=== PATIENT | female | born 1990 | race Caucasian/White ===

== ENCOUNTER 2016-09-22 10:29 | Emergency (ER) | payer MEDICAID, OTHER ==
[2016-09-22 10:29] VITALS: BMI 31.6
[2016-09-22 11:08] VITALS: O2SAT 97
--- NOTE | 2016-09-22 12:15 | C.PDOC ---
History Of Present Illness 26 yr old female presents to the ER with complaints of right sided headache for the past few weeks. Patient states the headache is usually intermittent, but currently the headache has lasted for the last 3 days and was gradual onset with nausea and vomiting. Patient reports today she felt light headed and passed out at work. Patient reports she takes control pill and has no history of syncope. Patient has been treating the headache with Tylenol and Motrin. Patient denies fever, chest pain, SOB, vision changes, weakness or numbness. Time Seen by Provider: 09/22/16 11:35 Chief Complaint (Nursing): Syncope History Per: Patient History/Exam Limitations: no limitations Onset/Duration Of Symptoms: Persistent (few weeks), Worse Since (3 days) Current Symptoms Are (Timing): Still Present Past Medical History Reviewed: Historical Data, Nursing Documentation, Vital Signs Vital Signs: Last Vital Signs Temp Pulse 108 H 09/22/16 11:04 Resp 20 09/22/16 11:04 BP 124/76 09/22/16 11:04 Pulse Ox 97 09/22/16 14:18 - Medical History PMH: Asthma, Diabetes, Kidney Stones - Perfect Procedures DELIVERY OF PRODUCTS OF CONCEPTION, EXTERNAL APPROACH (10/28/15) DRAINAGE OF AMNIOTIC FL, THERAP FROM POC, VIA OPENING (10/28/15) Family History: States: No Known Family Hx - Social History Hx Tobacco Use: No Hx Alcohol Use: No Hx Substance Use: No - Immunization History Hx Tetanus Toxoid Vaccination: Yes Hx Influenza Vaccination: Yes Hx Pneumococcal Vaccination: No Review Of Systems Except As Marked, All Systems Reviewed And Found Negative. Constitutional: Negative for: Fever Eyes: Negative for: Vision Change Cardiovascular: Positive for: Light Headedness. Negative for: Chest Pain Respiratory: Negative for: Shortness of Breath Gastrointestinal: Positive for: Nausea, Vomiting Musculoskeletal: Negative for: Arm Pain Neurological: Positive for: Headache. Negative for: Weakness, Numbness Physical Exam - Physical Exam Appears: Non-toxic, No Acute Distress Skin: Warm, Dry, No Rash Head: Atraumatic, Normacephalic Eye(s): bilateral: Normal Inspection, PERRL, EOMI Ear(s): Bilateral: Normal Oral Mucosa: Moist Throat: Normal, No Erythema, No Exudate Neck: Normal, Normal ROM, No Midline Cervical Tenderness, Supple Chest: Symmetrical, No Tenderness Cardiovascular: Rhythm Regular, No Murmur Respiratory: Normal Breath Sounds, No Rales, No Rhonchi, No Wheezing, No Plerual Rub Gastrointestinal/Abdominal: Normal Exam, Soft, No Tenderness, No Guarding, No Rebound Back: Normal Inspection, No CVA Tenderness Extremity: Normal ROM, No Swelling Neurological/Psych: Oriented x3, Normal Speech, Normal Motor ED Course And Treatment - Laboratory Results Result Diagrams: 09/22/16 12:56 09/22/16 12:56 Urine POC: Negative ECG: Interpreted By Me, Viewed By Me ECG Rhythm: Sinus Tachycardia Interpretation Of ECG: sinus tach Rate From EC O2 Sat by Pulse Oximetry: 97 Pulse Ox Interpretation: Normal Medical Decision Making Medical Decision Making: PLAN: * POC Urine * 202 pm pt reports headache greatly decreased. discussed with steve Thomas d/c Disposition Discussed With : Weston Yanez Doctor Will See Patient In The: Office Counseled Patient/Family Regarding: Studies Performed, Diagnosis, Need For Followup - Disposition Referrals: Weston Yanez MD [Staff Provider] - Disposition: HOME/ ROUTINE Disposition Time: 16:35 Condition: IMPROVED Instructions: Syncope (ED) Forms: General Discharge Instructions - Clinical Impression Clinical Impression: Syncope - PA / EMERGENCY COMMUNICATIONS OFFICER / Resident Statement MD/DO has reviewed & agrees with the documentation as recorded. - Scribe Statement The provider has reviewed the documentation as recorded by the Scribe Vilma Michelle All medical record entries made by the Scribe were at my direction and personally dictated by me. I have reviewed the chart and agree that the record accurately reflects my personal performance of the history, physical exam, medical decision making, and the department course for this patient. I have also personally directed, reviewed, and agree with the discharge instructions and disposition.
[2016-09-22 13:01] LABS: BASO # 0.1 K/uL (0.0-0.2); EOS % 0.5 % (0.0-4.0); HEMATOCRIT 39.8 % (34.0-47.0); LYMPH # 2.6 K/uL (1.0-4.3); LYMPH % 25.9 % (20.0-40.0); MEAN CELL VOLUME 89.3 fL (81.0-99.0); MEAN CORPUSCULAR HEMOGLOBIN 29.6 pg (27.0-31.0); MEAN CORPUSCULAR HGB CONC 33.2 g/dL (33.0-37.0); MEAN PLATELET VOLUME 8.1 fL (7.2-11.7); MONO # 0.8 K/uL (0.0-0.8); MONO % 7.9 % (0.0-10.0); RED CELL DISTRIBUTION WIDTH 13.7 % (11.5-14.5)
[2016-09-22 13:06] LABS: RBC URINE < 1 /hpf (0-3); URINE BILIRUBIN NEGATIVE (NEGATIVE); URINE BLOOD NEGATIVE (NEGATIVE); URINE COLOR Yellow (YELLOW); URINE GLUCOSE (UA) NORMAL (Normal); URINE KETONE NEGATIVE (NEGATIVE); URINE LEUKOCYTE ESTERASE NEG Leu/uL (Negative); URINE PROTEIN 1+ mg/dL (NEGATIVE); URINE UROBILINOGEN NORMAL mg/dL (0.2-1.0); WBC URINE < 1 /hpf (0-5)
[2016-09-22 13:08] LABS: CHLORIDE 106 mmol/L (98-107); POTASSIUM 4.4 mmol/L (3.6-5.2); SODIUM 143 mmol/L (132-148)
[2016-09-22 13:11] LABS: BLOOD UREA NITROGEN 10 mg/dL (7-17); CARBON DIOXIDE 24 mmol/L (22-30); GFR AFRICAN-AMERICAN > 60
[2016-09-22 13:12] LABS: CALCIUM 8.6 mg/dl (8.6-10.4); GLUCOSE,RANDOM 80 mg/dL (65-105)
--- NOTE | 2016-09-22 14:48 | CT ---
PROCEDURE: CT HEAD WITHOUT CONTRAST. HISTORY: syncope COMPARISON: No prior study available for comparison. . TECHNIQUE: Axial computed tomography images were obtained through the head/brain without intravenous contrast. Radiation dose: Total exam DLP = 828.41 mGy-cm. FINDINGS: HEMORRHAGE: No intracranial hemorrhage. BRAIN: No mass effect or edema. No atrophy or chronic microvascular ischemic changes. VENTRICLES: Prominent cisterna magna. No hydrocephalus. CALVARIUM: Unremarkable. PARANASAL SINUSES: Unremarkable as visualized. No significant inflammatory changes. MASTOID AIR CELLS: Unremarkable as visualized. No inflammatory changes. OTHER FINDINGS: None. IMPRESSION: No acute intracranial hemorrhage.
[2016-09-22 16:33] VITALS: BP 120/87; PULSE 99; RESP 18; TEMP 98.2
--- NOTE | 2016-09-23 20:01 | CARD ---
APPROVED REPORT EKG Measurement Heart [id number] DE 150P42 [id number] <Conclusion> Sinus tachycardia Otherwise normal
== END 2016-09-22 16:42 | disposition home or self-care (01) ==
LOC: C.ER 10:29
DX: R55 Syncope and collapse (principal)

== ENCOUNTER 2017-04-23 15:21 | Inpatient (IN) | payer SELFPAY ==
[2017-04-23 15:21] VITALS: BMI 31.6
--- NOTE | 2017-04-23 16:02 | C.PDOC ---
History Of Present Illness <Celina Joseph - Last Filed: 04/23/17 20:21> <Sebastien Chavez - Last Filed: 04/23/17 22:45> 26 y/o F c p/w vaginal bleeding in . Patient had positive urine test 2 weeks ago and began spotting today. States that the bleeding has now stopped. Denies current pain. Denies dysuria, fever, vomiting. Patient had L sided flank pain 2 weeks ago radiating to L groin, similar to previous kidney stones, which typically occur when she becomes . She was taking Bactrim for the flank pain but discontinued it when she discovered she was . (Sebastien Chavez) <Celina Joseph - Last Filed: 04/23/17 20:21> <Sebastien Chavez - Last Filed: 04/23/17 22:45> Time Seen by Provider: 04/23/17 15:42 Chief Complaint (Nursing): Female Genitourinary Past Medical History - Medical History PMH: Asthma, Diabetes, Kidney Stones Family History: States: Unknown Family Hx - Social History Hx Tobacco Use: No Hx Alcohol Use: No Hx Substance Use: No - Immunization History Hx Tetanus Toxoid Vaccination: Yes Hx Influenza Vaccination: Yes Hx Pneumococcal Vaccination: No <Sebastien Chavez - Last Filed: 04/23/17 22:45> Vital Signs: Last Vital Signs Temp 98.8 F 04/23/17 20:44 Pulse 98 H 04/23/17 20:44 Resp 18 04/23/17 20:44 BP 114/78 04/23/17 20:44 Pulse Ox 100 04/23/17 20:44 - [facility] Procedures DELIVERY OF PRODUCTS OF CONCEPTION, EXTERNAL APPROACH (10/28/15) DRAINAGE OF AMNIOTIC FL, THERAP FROM POC, VIA OPENING (10/28/15) Review Of Systems Except As Marked, All Systems Reviewed And Found Negative. Constitutional: Negative for: Fever Respiratory: Negative for: Shortness of Breath <Sebastien Chavez - Last Filed: 04/23/17 22:45> Physical Exam <Celina Joseph - Last Filed: 04/23/17 20:21> <Sebastien Chavez - Last Filed: 04/23/17 22:45> - Physical Exam Additional Physical Exam Comments: Constitutional: No acute distress. Head: Normocephalic. Atraumatic. Eyes: PERRL. EOMI. ENT: Moist mucous membranes. Neck: Supple. Cardiovascular: Regular rate. Radial pulses 2+ bilaterally. Chest: No tenderness. Respiratory: Clear to auscultation bilaterally. GI: Soft. Nontender. Nondistended. Back: No CVA tenderness. Musculoskeletal: No tenderness or swelling of extremities. Skin: No rash. Neurologic: Alert, no focal deficit. (Sebastien Chavez) ED Course And Treatment - Laboratory Results Result Diagrams: 04/23/17 16:12 04/23/17 16:12 <JakeCelina - Last Filed: 04/23/17 20:21> - Laboratory Results Result Diagrams: 04/23/17 16:12 04/23/17 16:12 O2 Sat by Pulse Oximetry: 99 <Sebastien Chavez - Last Filed: 04/23/17 22:45> Progress - Data Reviewed Data Reviewed: Lab, Diagnostic imaging, Old records <Celina Joseph - Last Filed: 04/23/17 20:21> <Sebastien Chavez - Last Filed: 04/23/17 22:45> - Re-Evaluation Re-evaluation Note: 04/23/17 20:[address] WHITAKER. PT REQUESTING O.R. (Celina Joseph) Medical Decision Making <Celina Joseph - Last Filed: 04/23/17 20:21> <Sebastien Chavez - Last Filed: 04/23/17 22:45> Medical Decision Making: Check US for IUP and correlate with Bhcg. Check UA for UTI. Check US for hydronephrosis. Patient declined pain medication. US shows no IUP despite beta hcg above discriminatory zone. In L adnexa, "ring of fire" visible as per radiologist. Dr. Whitaker consulted for OBGYN. Signed out to ED night team pending her recommendation. (Sebastien Chavez) Disposition Counseled Patient/Family Regarding: Studies Performed, Diagnosis - Disposition Disposition Time: 20:21 - POA Present On Arrival: None <Celina Joseph - Last Filed: 04/23/17 20:21> <Sebastien Chavez - Last Filed: 04/23/17 22:45> - Disposition Disposition: HOSPITALIZED Condition: STABLE - Clinical Impression Clinical Impression: Ectopic Decision To Admit - Pt Status Changed To: Hospital Disposition Of: Observation - . Bed Request Type: AIR MARSHAL Admitting Physician: Ivet Whitaker <Celina Joseph - Last Filed: 04/23/17 20:21> <Sebastien Chavez - Last Filed: 04/23/17 22:45> - . Patient Diagnosis: Ectopic
[2017-04-23 16:17] LABS: BASO # 0.1 K/uL (0.0-0.2); BASO % 1.2 % (0.0-2.0); EOS # 0.1 K/uL (0.0-0.7); EOS % 0.9 % (0.0-4.0); HEMATOCRIT 40.1 % (34.0-47.0); LYMPH # 2.7 K/uL (1.0-4.3); MEAN CELL VOLUME 89.3 fL (81.0-99.0); MEAN CORPUSCULAR HEMOGLOBIN 30.4 pg (27.0-31.0); MEAN CORPUSCULAR HGB CONC 34.1 g/dL (33.0-37.0); MEAN PLATELET VOLUME 8.2 fL (7.2-11.7); MONO # 0.7 K/uL (0.0-0.8); MONO % 6.8 % (0.0-10.0); RED CELL DISTRIBUTION WIDTH 13.5 % (11.5-14.5); WHITE BLOOD COUNT 10.7 K/uL (4.8-10.8)
[2017-04-23 16:25] LABS: CHLORIDE 98 mmol/L (98-107)
[2017-04-23 16:26] LABS: POTASSIUM 4.1 mmol/L (3.6-5.2); SODIUM 132 mmol/L (132-148)
[2017-04-23 16:28] LABS: ALB/GLOB RATIO 1.4 (1.0-2.1); AST/SGOT 20 U/L (14-36); BILIRUBIN,TOTAL 0.5 mg/dL (0.2-1.3); BLOOD UREA NITROGEN 10 mg/dL (7-17); CARBON DIOXIDE 24 mmol/L (22-30); GFR AFRICAN-AMERICAN > 60; TOTAL PROTEIN 8.1 g/dL (6.3-8.3)
[2017-04-23 16:29] LABS: ALKALINE PHOSPHATASE 70 U/L (38-126); ALT/SGPT 31 U/L (9-52); CALCIUM 9.4 mg/dl (8.6-10.4); GLUCOSE,RANDOM 79 mg/dL (65-105)
[2017-04-23 16:36] LABS: RBC URINE 1 /hpf (0-3); URINE BACTERIA OCC (<OCC); URINE BILIRUBIN NEGATIVE (NEGATIVE); URINE BLOOD NEGATIVE (NEGATIVE); URINE COLOR Yellow (YELLOW); URINE GLUCOSE (UA) NORMAL (Normal); URINE KETONE NEGATIVE (NEGATIVE); URINE LEUKOCYTE ESTERASE TRACE Leu/uL (Negative); URINE PROTEIN NEGATIVE (NEGATIVE); WBC URINE 6 /hpf (0-5)
--- NOTE | 2017-04-23 19:00 | US ---
PROCEDURE: Ultrasound of the Kidneys HISTORY: h/o kidney stones, assess for hydronephrosis/stone COMPARISON: Comparison made with CT scan abdomen and pelvis dated 12/11/2014. TECHNIQUE: Sonogram of the kidneys. FINDINGS: RIGHT KIDNEY: Right kidney measures approximately 10.4 x 3.8 x 3.6 Normal in size, contour and echogenicity. There is a small approximately 2.4 mm echogenic focus lower pole left kidney that is most consistent with nonobstructing calculus and was visible on prior study. . No evidence of hydronephrosis. No solid masses or collections seen. LEFT KIDNEY: Left kidney measures approximately 10.6 x 5.2 x 4.4 cm Normal in size, contour and echogenicity. No stone, solid mass lesion or hydronephrosis visualized. OTHER FINDINGS: None. IMPRESSION: Small nonobstructing calculus lower pole right kidney.
--- NOTE | 2017-04-23 19:13 | US ---
PROCEDURE: Pelvic ultrasound dated 04/23/2017. HISTORY: vag bleeding in , assess cervix COMPARISON: Transabdominal/transvaginal sonographic evaluation of the pelvis performed. Comparison made with prior OB ultrasound dated 12/24/2014 TECHNIQUE: Transabdominal/transvaginal sonographic evaluation of the pelvis performed. FINDINGS: Uterus is retroverted measuring approximately 9.2 x 6.2 x 6.2 cm. No evidence of intrauterine gestation. Left adnexa measures 4.2 x 3.2 x 2.6 cm and contains a complex cyst that measures 2.0 x 1.7 x 1.6 cm which appears to exhibit a rim of increased vascularity (questionable ring of fire of ectopic ). Correlation with serum beta HCG. . The findings should be considered ectopic until proven otherwise. There is also a 2nd complex appearing structure with anechoic centered at measures approximately 1.2 x 8 1.4 x 1.2 cm Cervix measures approximately 3.4 cm. There is a fundal fibroid that measures 1.0 x 0.9 x 1.4 cm. Right ovary measures 2.9 x 2.6 x 2.2 cm and exhibits normal flow. IMPRESSION: No evidence of intrauterine gestation. Complex appearing left adnexal structures, 1 of which exhibits a peripheral ring of increased vascularity which is felt to represent" ring of fire sign of ectopic " ; findings consistent with ectopic until proven otherwise. Correlation with serum beta HCG. Findings also discussed with Dr. Chavez at approximately 7:08 p.m. with written down and read back verification.
[2017-04-23] MEDS ORDERED: Propofol 10 mg/ml Inj (20 ML) ONE ×2 (21:29→23:00)
[2017-04-23] MEDS ORDERED: Midazolam 2 MG/2 ML VIAL ONE (21:29)
[2017-04-23] MEDS ORDERED: Rocuronium 10 mg/ml (5 ml) ONE (21:34)
[2017-04-23] MEDS ORDERED: Lactated Ringer's 1,000 ML IV ONE ×2 (21:35→22:18)
[2017-04-23] MEDS ORDERED: Bupivacaine HCl 0.25% PF (10 ml) Inj ONE (21:50)
[2017-04-23] MEDS ORDERED: cefOXitin IV 2 gm in Dextrose 2 GM/50 ML BAG IVPB ONE (21:51)
[2017-04-23] MEDS: HYDROmorphone 0.5 mg/0.5 ml ISec IVP PRN ×3 (23:23→23:45)
[2017-04-23] MEDS ORDERED: Oxycodone/Acetaminophen 5/325 mg Tab PO PRN (23:28)
--- NOTE | 2017-04-23 23:36 | PCM.SURG1 ---
Surgeon's Initial Post Op Note - Surgeon's Notes Surgeon: Ivet Whitaker MD Smalltalk Developer: Salome Calle MD Type of Anesthesia: General Endo Anesthesia Administered By: Edward Abad DO Pre-Operative Diagnosis: Left ectopic Operative Findings: EUA: retroflexed uterus; no adnexal masses. Uterus sounded to 10 cm. At laparoscopy: grossly appearing fallopian tubes bilaterally, products of conception retrieved from posterior cul-de-sac; oozing from fimbriated end of left fallopian tube. Normal ovaries bilaterally. Probable hemorrhagic corpus luteum of left ovary. Normal upper abdominal organs. Filmy adhesions in RLQ from intestines to anterior abdominal wall. Post-Operative Diagnosis: Left tubal . Operation Performed: Retrieval of products of conception. Cauterization of left fallopian tube. Specimen/Specimens Removed: Products of conception, blood clots Estimated Blood Loss: EBL {In ML}: 50 (IVFs 1300 mL; U.O. 200 mL) Blood Products Given: N/A Drains Used: No Drains Post-Op Condition: Good Date of Surgery/Procedure: 04/23/17 Time of Surgery/Procedure: 23:18
--- NOTE | 2017-04-24 00:08 | CP.PCM.HP ---
History of Present Illness - History of Present Illness History of Present Illness: Patient received in E.D. bed 15 at approximately 2010 hours; patient in NAD; significant other at her bedside. Patient is a 26 y.alexei G 5 P2022, LMP 03/09/17 x 5-6 days, "normal", referred by PCP and employer Dr. Yanez for evaluation of continual left lower back pain. Patient reports ooset of left low back pain 2 weeks ago. Blood work performed, found to be . Patient made appointment for first visit at [facility] 05/19/17. While at work today, due to persistent c/o low back pain, advised to come to E.D. In E.D., renal ultrasound performed confirms non obstructing 2.4 mm echogenic focus consistent with calculus in lower pole of left kidney, present on prior study. Pelvic ultrasound revealed no gestational sac in uterus, left adnexal complex cyst 2.0 x 1.7 x 1.6 cm with increased vascularity - c/w ectopic ; a second complex cyst in the left adnexa, and normal right adnexa. No comment made as to free fluid. In light of serum quantitative HCG of 4760 mIU and these ultrasound findings, ectopic is very likely. Patient reports pain is 4/10. Denies nausea , vomiting, or abdominal pain. P Ob: x 2: 2008, female, 6 1/2 lb, [place], [place], no complications. 2016 , male, 6 1/2 lb, [facility], noted for renal calculus. 2015, Spont ab x 2 : both "very early"; no D&C needed. P METABOLIC SPECIALIST: 15 x monthly x 5-6 No h/o abnormal pap; no STI except HPV (+). PMH: 2016, renal calculus PSH: Age 11, laparoscopic appendectomy NKDA Meds: none Soc Hx: denies tobacco, illicit drug or EtOH use. Lives with FOB: together x 4 years. 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 Fam Hx: Mother alive 45 y.o. - cancer of the brain. Father age 42 - complicaitons pf HTN, DM, cardiac issues. NO other fam h/o cancer Present on Admission - Present on Admission Any Indicators Present on Admission: No Review of Systems - Review of Systems All systems: reviewed and no additional remarkable complaints except - Genitourinary Genitourinary: Hx Renal/Bladder Calculi Additional comments: Left low back pain Past Patient History - Infectious Disease Hx of Infectious Diseases: None - Tetanus Immunizations Tetanus Immunization: Unknown - Past Medical History & Family History Pertinent Family History: Mother - cancer of the brain Father - H/O HTN, DM, cardiac disease - Past Social History Smoking Status: Never Smoked 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 Alcohol: None Drugs: Denies Home Situation {Lives}: With Family - CARDIAC Hx Cardiac Disorders: No - PULMONARY Hx Asthma: Yes - NEUROLOGICAL Hx Neurological Disorder: No - RENAL Hx Kidney Stones: Yes - HEMATOLOGICAL/ONCOLOGICAL Hx Blood Disorders: No - INTEGUMENTARY Hx Dermatological Problems: No - MUSCULOSKELETAL/RHEUMATOLOGICAL Hx Back Pain: Yes - GASTROINTESTINAL Other/Comment: Appendectomy, age 11 - GENITOURINARY/GYNECOLOGICAL : 5 Para: 2 Termination of : 2 - PSYCHIATRIC Hx Psychophysiologic Disorder: No Hx Substance Use: No - SURGICAL HISTORY Hx Surgeries: Yes Hx Appendectomy: Yes - ANESTHESIA Hx Anesthesia: Yes Meds Allergies/Adverse Reactions: Allergies Allergy/AdvReac Type Severity Reaction Status Date / Time No Known Allergies Allergy Verified 09/22/16 11:08 Physical Exam - Constitutional Appears: Well, No Acute Distress - Head Exam Head Exam: NORMAL INSPECTION - Eye Exam Eye Exam: Normal appearance - ENT Exam ENT Exam: Mucous Membranes Moist - Neck Exam Neck exam: Positive for: Full Rom - Respiratory Exam Respiratory Exam: NORMAL BREATHING PATTERN - Cardiovascular Exam Cardiovascular Exam: REGULAR RHYTHM - GI/Abdominal Exam GI & Abdominal Exam: Soft - Exam Additional comments: No cervical motion tenderness or uterine tenderness. (+) left adnexal tenderness. No right adnexal mass or tenderness - Extremities Exam Extremities exam: Positive for: full ROM, normal inspection - Back Exam Back exam: CVA tenderness (L) - Neurological Exam Neurological exam: Alert, Oriented x3 - Psychiatric Exam Psychiatric exam: Normal Affect, Normal Mood - Skin Skin Exam: Dry, Intact, Normal Color, Warm Results - Vital Signs Recent Vital Signs: Last Vital Signs Temp 97.3 F L 04/23/17 23:18 Pulse 69 04/23/17 23:45 Resp 15 04/23/17 23:45 BP 119/64 04/23/17 23:45 Pulse Ox 99 04/23/17 23:45 - Labs Result Diagrams: 04/23/17 16:12 04/23/17 16:12 Labs: Laboratory Results - last 24 hr 04/23/17 04/23/17 04/23/17 15:50 16:12 16:12 WBC 10.7 RBC 4.49 Hgb 13.6 Hct 40.1 MCV 89.3 MCH 30.4 MCHC 34.1 RDW 13.5 Plt Count 391 MPV 8.2 Neut % (Auto) 66.1 Lymph % (Auto) 25.0 [place] % (Auto) 6.8 Eos % (Auto) 0.9 Baso % (Auto) 1.2 Neut # 7.0 Lymph # 2.7 [place] # 0.7 Eos # 0.1 Baso # 0.1 Sodium 132 Potassium 4.1 Chloride 98 Carbon Dioxide 24 Anion Gap 14 BUN 10 Creatinine 0.7 Est GFR ( Amer) > 60 Est GFR (Non-Af Amer) > 60 Random Glucose 79 Calcium 9.4 Total Bilirubin 0.5 AST 20 ALT 31 Alkaline Phosphatase 70 Total Protein 8.1 Albumin 4.7 Globulin 3.4 Albumin/Globulin Ratio 1.4 Beta HCG, Quant Urine Color Yellow Urine Clarity Clear Urine pH 5.0 Ur Specific [place] 1.020 Urine Protein Negative Urine Glucose (UA) Normal Urine Ketones Negative Urine Blood Negative Urine Nitrate Negative Urine Bilirubin Negative Urine Urobilinogen 2.0 H Ur Leukocyte Esterase Trace Urine WBC (Auto) 6 H Urine RBC (Auto) 1 Ur Squamous Epith Cells 9 H Urine Bacteria Occ H Urine HCG, Qual Positive Blood Type Antibody Screen 04/23/17 04/23/17 16:12 16:12 WBC RBC Hgb Hct MCV MCH MCHC RDW Plt Count MPV Neut % (Auto) Lymph % (Auto) [place] % (Auto) Eos % (Auto) Baso % (Auto) Neut # Lymph # [place] # Eos # Baso # Sodium Potassium Chloride Carbon Dioxide Anion Gap BUN Creatinine Est GFR ( Amer) Est GFR (Non-Af Amer) Random Glucose Calcium Total Bilirubin AST ALT Alkaline Phosphatase Total Protein Albumin Globulin Albumin/Globulin Ratio Beta HCG, Quant 4760.60 Urine Color Urine Clarity Urine pH Ur Specific [place] Urine Protein Urine Glucose (UA) Urine Ketones Urine Blood Urine Nitrate Urine Bilirubin Urine Urobilinogen Ur Leukocyte Esterase Urine WBC (Auto) Urine RBC (Auto) Ur Squamous Epith Cells Urine Bacteria Urine HCG, Qual Blood Type A POSITIVE Antibody Screen Negative Assessment & Plan - Assessment and Plan (Free Text) Assessment: Laboratory and ultrasound reports and images of pelvic ultrasound reviewed by me personally 26 y.ol P2022, left ectopic . Options discussed with patient: 1) methotrexate and the anticipated weekly folllow up until quantitative HCG level is negative. The possibility of surgery and repeat dosing was discussed. 2) surgical intervention. R/B/C discussed. Patient opted for surgery at this time. Patient last ate at 1000 hours. Consents signed, dated, witnessed and placed in chart. Patient is NPO; clinically stable. and livestock nutritionist to O.R. Plan: Admit to METABOLIC SPECIALIST NPO IVFs Mefoxin 2 grams IVP x 1, livestock nutritionist to O.R. - Date & Time Date: 04/23/17 Time: 20:45
[2017-04-24] MEDS: Lactated Ringer's 1,000 ML IV SCH ×3 (00:58→08:26)
[2017-04-24] MEDS: Oxycodone/Acetaminophen 5/325 mg Tab PO PRN ×2 (02:38→08:18)
[2017-04-24 07:29] LABS: BASO % 0.1 % (0.0-2.0); HEMATOCRIT 37.3 % (34.0-47.0); LYMPH # 0.8 K/uL (1.0-4.3); LYMPH % 5.9 % (20.0-40.0); MEAN CELL VOLUME 90.1 fL (81.0-99.0); MEAN CORPUSCULAR HEMOGLOBIN 30.4 pg (27.0-31.0); MEAN CORPUSCULAR HGB CONC 33.8 g/dL (33.0-37.0); MEAN PLATELET VOLUME 8.5 fL (7.2-11.7); MONO # 0.3 K/uL (0.0-0.8); MONO % 2.1 % (0.0-10.0); PLATELET COUNT 376 K/uL (130-400); RED CELL DISTRIBUTION WIDTH 13.4 % (11.5-14.5); WHITE BLOOD COUNT 13.6 K/uL (4.8-10.8)
--- NOTE | 2017-04-24 07:31 | CP.PCM.PN ---
Subjective - Date & Time of Evaluation Date of Evaluation: 04/24/17 Time of Evaluation: 07:27 - Subjective Subjective: Clarisa Diaz, PGY1, Progress Note for Dr Rudd: Pt seen and examined at bedside. Pt had a L salpingostomy overnight. Denies fever, chills, nausea, vomiting, left lower back pain, vaginal bleeding/ discharge this AM. Pt reports pain at laparoscopic incision sites/abdominal pain , rates it 9/10. Pt received Percocet earlier in the night, and Motrin an hour before. Objective - Vital Signs/Intake and Output Vital Signs (last 24 hours): Temp Pulse Resp BP Pulse Ox 97.7 F 110 H 20 108/72 99 04/24/17 00:51 04/24/17 00:51 04/24/17 00:51 04/24/17 00:51 04/24/17 00:51 Intake and Output: 04/24/17 04/24/17 06:59 18:59 Output Total 350 Balance -350 - Medications Medications: Current Medications Lactated Ringer's (Lactated Ringer's) 1,000 mls @ 125 mls/hr IV .Q8H LUZ Last Admin: 04/24/17 00:58 Dose: 125 mls/hr Ibuprofen (Motrin Tab) 600 mg PO Q6 PRN PRN Reason: Pain, Mild (1-3) Last Admin: 04/24/17 05:44 Dose: 600 mg Metoclopramide HCl (Reglan) 10 mg IVP ONCE PRN PRN Reason: Nausea/Vomiting Stop: 04/24/17 23:00 Oxycodone/Acetaminophen (Percocet 5/325 Mg Tab) 1 tab PO Q4H PRN PRN Reason: Pain, moderate (4-7) Stop: 04/26/17 23:29 Oxycodone/Acetaminophen (Percocet 5/325 Mg Tab) 2 tab PO Q6H PRN PRN Reason: Pain, severe (8-10) Stop: 04/26/17 23:30 Last Admin: 04/24/17 02:38 Dose: 2 tab - Labs Labs: 04/23/17 16:12 04/23/17 16:12 - Constitutional Appears: No Acute Distress, Younger Than Stated Age - Head Exam Head Exam: ATRAUMATIC, NORMOCEPHALIC - Eye Exam Eye Exam: EOMI, PERRL. absent: Conjunctival injection, Scleral icterus Pupil Exam: PERRL. absent: Irregular, Unequal - ENT Exam ENT Exam: Mucous Membranes Moist - Neck Exam Neck Exam: Normal Inspection - Respiratory Exam Respiratory Exam: Clear to Ausculation Bilateral, NORMAL BREATHING PATTERN. absent: Accessory Muscle Use, Rhonchi, Wheezes - Cardiovascular Exam Cardiovascular Exam: REGULAR RHYTHM, RRR, +S1, +S2. absent: Bradycardia, Tachycardia, Murmur - GI/Abdominal Exam GI & Abdominal Exam: Soft, Hypoactive Bowel Sounds. absent: Tenderness, Rebound - Extremities Exam Extremities Exam: Normal Inspection. absent: Calf Tenderness, Pedal Edema, Tenderness - Neurological Exam Neurological Exam: Alert, Awake, Oriented x3 - Psychiatric Exam Psychiatric exam: Normal Affect, Normal Mood - Skin Skin Exam: Dry, Warm Additional comments: 3 laparoscopic incision sites noted on abdominal area, covered in dressing, c/d/ i Assessment and Plan - Assessment and Plan (Free Text) Assessment: 26 years old female , s/p left tubal for left ectopic , POD 1. Plan: - Reglan prn, C/w pain management motrin and percocet prn - Monitor for fever, vaginal bleeding. - Pt tolerating clear liquids, will advance to regular diet today. - Increase activity as tolerated. - Hgb stable post surgery: 13.6->12.6 this AM. - Monitor weekly B HCG; on admission b HCG 4760; F/u with COMPUTER INFORMATION SYSTEMS INSTRUCTOR outpatient - Will discharge today. F/u in clinic with Dr. Rudd in 1 week. Discussed with attending, Dr. Rudd. Clarisa Diaz, PGY1
[2017-04-24 08:33] VITALS: BP 99/62; PULSE 79; RESP 18; TEMP 97.8; O2SAT 98
--- NOTE | 2017-04-24 09:12 | CP.PCM.DIS ---
<CLARICE CARVER - Last Filed: 04/24/17 09:16> Provider - Provider Date of Admission: 04/23/17 20:22 Attending physician: Ivet Whitaker MD Primary care physician: Dr aYnez Time Spent in preparation of Discharge (in minutes): 30 Diagnosis - Discharge Diagnosis (1) Tubal Status: Acute Priority: Medium Onset Date: ~04/23/17 Hospital Course - Lab Results Lab Results: Most Recent Lab Values WBC 13.6 K/uL (4.8-10.8) H 04/24/17 07:13 RBC 4.14 Mil/uL (3.80-5.20) 04/24/17 07:13 Hgb 12.6 g/dL (11.0-16.0) 04/24/17 07:13 Hct 37.3 % (34.0-47.0) 04/24/17 07:13 MCV 90.1 fL (81.0-99.0) 04/24/17 07:13 MCH 30.4 pg (27.0-31.0) 04/24/17 07:13 MCHC 33.8 g/dL (33.0-37.0) 04/24/17 07:13 RDW 13.4 % (11.5-14.5) 04/24/17 07:13 Plt Count 376 K/uL (130-400) 04/24/17 07:13 MPV 8.5 fL (7.2-11.7) 04/24/17 07:13 Neut % (Auto) 91.9 % (50.0-75.0) H 04/24/17 07:13 Lymph % (Auto) 5.9 % (20.0-40.0) L 04/24/17 07:13 [place] % (Auto) 2.1 % (0.0-10.0) 04/24/17 07:13 Eos % (Auto) 0.0 % (0.0-4.0) 04/24/17 07:13 Baso % (Auto) 0.1 % (0.0-2.0) 04/24/17 07:13 Neut # 12.5 K/uL (1.8-7.0) H 04/24/17 07:13 Lymph # 0.8 K/uL (1.0-4.3) L 04/24/17 07:13 [place] # 0.3 K/uL (0.0-0.8) 04/24/17 07:13 Eos # 0.0 K/uL (0.0-0.7) 04/24/17 07:13 Baso # 0.0 K/uL (0.0-0.2) 04/24/17 07:13 Sodium 132 mmol/L (132-148) 04/23/17 16:12 Potassium 4.1 mmol/L (3.6-5.2) 04/23/17 16:12 Chloride 98 mmol/L (98-107) 04/23/17 16:12 Carbon Dioxide 24 mmol/L (22-30) 04/23/17 16:12 Anion Gap 14 (10-20) 04/23/17 16:12 BUN 10 mg/dL (7-17) 04/23/17 16:12 Creatinine 0.7 mg/dL (0.7-1.2) 04/23/17 16:12 Est GFR ( Amer) > 60 04/23/17 16:12 Est GFR (Non-Af Amer) > 60 04/23/17 16:12 Random Glucose 79 mg/dL (65-105) 04/23/17 16:12 Calcium 9.4 mg/dl (8.6-10.4) 04/23/17 16:12 Total Bilirubin 0.5 mg/dL (0.2-1.3) 04/23/17 16:12 AST 20 U/L (14-36) 04/23/17 16:12 ALT 31 U/L (9-52) 04/23/17 16:12 Alkaline Phosphatase 70 U/L (38-126) 04/23/17 16:12 Total Protein 8.1 g/dL (6.3-8.3) 04/23/17 16:12 Albumin 4.7 g/dL (3.5-5.0) 04/23/17 16:12 Globulin 3.4 gm/dL (2.2-3.9) 04/23/17 16:12 Albumin/Globulin Ratio 1.4 (1.0-2.1) 04/23/17 16:12 Beta HCG, Quant 2097.00 mIU/ML 04/24/17 07:13 Urine Color Yellow (YELLOW) 04/23/17 15:50 Urine Clarity Clear (Clear) 04/23/17 15:50 Urine pH 5.0 (5.0-8.0) 04/23/17 15:50 Ur Specific [place] 1.020 (1.003-1.030) 04/23/17 15:50 Urine Protein Negative mg/dL (NEGATIVE) 04/23/17 15:50 Urine Glucose (UA) Normal mg/dL (Normal) 04/23/17 15:50 Urine Ketones Negative mg/dL (NEGATIVE) 04/23/17 15:50 Urine Blood Negative (NEGATIVE) 04/23/17 15:50 Urine Nitrate Negative (NEGATIVE) 04/23/17 15:50 Urine Bilirubin Negative (NEGATIVE) 04/23/17 15:50 Urine Urobilinogen 2.0 mg/dL (0.2-1.0) H 04/23/17 15:50 Ur Leukocyte Esterase Trace Ernie/uL (Negative) 04/23/17 15:50 Urine WBC (Auto) 6 /hpf (0-5) H 04/23/17 15:50 Urine RBC (Auto) 1 /hpf (0-3) 04/23/17 15:50 Ur Squamous Epith Cells 9 /hpf (0-5) H 04/23/17 15:50 Urine Bacteria Occ (<OCC) H 04/23/17 15:50 Urine HCG, Qual Positive (NEGATIVE) 04/23/17 15:50 Blood Type A POSITIVE 04/23/17 16:12 Antibody Screen Negative 04/23/17 16:12 - Hospital Course Hospital Course: 26 years old female , LMP 03/09/17, presented to ED for persistent left lower back pain x past 2 weeks. Pt found to be recently by her PCP Dr. Yanez. In hospital, B HCG 4760 mIU, renal ultrasound showed non obstructing 2.4 mm echogenic focus consistent with calculus in lower pole of left kidney, present on prior study. Pelvic ultrasound revealed no gestational sac in uterus , left adnexal complex cyst 2.0 x 1.7 x 1.6 cm with increased vascularity - c/w ectopic ; a second complex cyst in the left adnexa, and normal right adnexa. Pt underwent left tubal , pt doing well post op, H/H stable. Denies nausea, vomiting, or abdominal pain. Pt to be discharged and f/u in clinic with Dr Rudd in 1 week. - Date & Time of H&P Date of H&P: 04/23/17 Time of H&P: 23:48 Discharge Exam - Head Exam Head Exam: ATRAUMATIC, NORMOCEPHALIC - Eye Exam Eye Exam: EOMI, Normal appearance, PERRL. absent: Conjunctival injection, Scleral icterus Pupil Exam: PERRL - ENT Exam ENT Exam: Mucous Membranes Dry - Respiratory Exam Respiratory Exam: Clear to PA & Lateral, NORMAL BREATHING PATTERN. absent: Accessory Muscle Use, Chest Wall Tenderness - Cardiovascular Exam Cardiovascular Exam: RRR, +S1, +S2. absent: Rubs, Systolic Murmur - GI/Abdominal Exam GI & Abdominal Exam: Normal Bowel Sounds Additional comments: laparoscopic sites c/d/i, minimal bleeding - Neurological Exam Neurological exam: Alert, Oriented x3 - Psychiatric Exam Psychiatric exam: Normal Affect, Normal Mood - Skin Skin Exam: Dry, Warm Discharge Plan - Discharge Medications Prescriptions: Ibuprofen [Motrin Tab] 600 mg PO Q6 PRN #30 tab PRN Reason: Pain, Mild (1-3) - Follow Up Plan Condition: STABLE Disposition: HOME/ ROUTINE Patient education suggested?: Yes Instructions: Constipation (GEN), Acute Abdominal Pain (GEN) Additional Instructions: Follow up in clinic with Dr. Rudd in 1 week. Please make follow up appt. Today, the clinic is not scheduling appts due to staff shortage. Clinical Quality Measures - CQM - Stroke Contranindication/Reason for not providing: Other If Other selected, reason for not providing: too short a stay; not high risk for antithrombotic treatment Anticoagulation Prescribed for Atrial Flutter, Atrial Fibrillation and History of:: Not Applicable - CQM - VTE Did patient receive overlap therapy during hosptialization?: No <Jose Rudd - Last Filed: 04/24/17 21:06> Provider - Provider Date of Admission: 04/23/17 20:22 Attending physician: Ivet Whitaker MD Hospital Course - Lab Results Lab Results: Most Recent Lab Values WBC 13.6 K/uL (4.8-10.8) H 04/24/17 07:13 RBC 4.14 Mil/uL (3.80-5.20) 04/24/17 07:13 Hgb 12.6 g/dL (11.0-16.0) 04/24/17 07:13 Hct 37.3 % (34.0-47.0) 04/24/17 07:13 MCV 90.1 fL (81.0-99.0) 04/24/17 07:13 MCH 30.4 pg (27.0-31.0) 04/24/17 07:13 MCHC 33.8 g/dL (33.0-37.0) 04/24/17 07:13 RDW 13.4 % (11.5-14.5) 04/24/17 07:13 Plt Count 376 K/uL (130-400) 04/24/17 07:13 MPV 8.5 fL (7.2-11.7) 04/24/17 07:13 Neut % (Auto) 91.9 % (50.0-75.0) H 04/24/17 07:13 Lymph % (Auto) 5.9 % (20.0-40.0) L 04/24/17 07:13 [place] % (Auto) 2.1 % (0.0-10.0) 04/24/17 07:13 Eos % (Auto) 0.0 % (0.0-4.0) 04/24/17 07:13 Baso % (Auto) 0.1 % (0.0-2.0) 04/24/17 07:13 Neut # 12.5 K/uL (1.8-7.0) H 04/24/17 07:13 Lymph # 0.8 K/uL (1.0-4.3) L 04/24/17 07:13 [place] # 0.3 K/uL (0.0-0.8) 04/24/17 07:13 Eos # 0.0 K/uL (0.0-0.7) 04/24/17 07:13 Baso # 0.0 K/uL (0.0-0.2) 04/24/17 07:13 Neutrophils % (Manual) 94 % (50-75) H 04/24/17 07:13 Lymphocytes % (Manual) 3 % (20-40) L 04/24/17 07:13 Monocytes % (Manual) 3 % (0-10) 04/24/17 07:13 Toxic Granulation Present 04/24/17 07:13 Platelet Estimate Normal (NORMAL) 04/24/17 07:13 Sodium 132 mmol/L (132-148) 04/23/17 16:12 Potassium 4.1 mmol/L (3.6-5.2) 04/23/17 16:12 Chloride 98 mmol/L (98-107) 04/23/17 16:12 Carbon Dioxide 24 mmol/L (22-30) 04/23/17 16:12 Anion Gap 14 (10-20) 04/23/17 16:12 BUN 10 mg/dL (7-17) 04/23/17 16:12 Creatinine 0.7 mg/dL (0.7-1.2) 04/23/17 16:12 Est GFR ( Amer) > 60 04/23/17 16:12 Est GFR (Non-Af Amer) > 60 04/23/17 16:12 Random Glucose 79 mg/dL (65-105) 04/23/17 16:12 Calcium 9.4 mg/dl (8.6-10.4) 04/23/17 16:12 Total Bilirubin 0.5 mg/dL (0.2-1.3) 04/23/17 16:12 AST 20 U/L (14-36) 04/23/17 16:12 ALT 31 U/L (9-52) 04/23/17 16:12 Alkaline Phosphatase 70 U/L (38-126) 04/23/17 16:12 Total Protein 8.1 g/dL (6.3-8.3) 04/23/17 16:12 Albumin 4.7 g/dL (3.5-5.0) 04/23/17 16:12 Globulin 3.4 gm/dL (2.2-3.9) 04/23/17 16:12 Albumin/Globulin Ratio 1.4 (1.0-2.1) 04/23/17 16:12 Beta HCG, Quant 2097.00 mIU/ML 04/24/17 07:13 Urine Color Yellow (YELLOW) 04/23/17 15:50 Urine Clarity Clear (Clear) 04/23/17 15:50 Urine pH 5.0 (5.0-8.0) 04/23/17 15:50 Ur Specific [place] 1.020 (1.003-1.030) 04/23/17 15:50 Urine Protein Negative mg/dL (NEGATIVE) 04/23/17 15:50 Urine Glucose (UA) Normal mg/dL (Normal) 04/23/17 15:50 Urine Ketones Negative mg/dL (NEGATIVE) 04/23/17 15:50 Urine Blood Negative (NEGATIVE) 04/23/17 15:50 Urine Nitrate Negative (NEGATIVE) 04/23/17 15:50 Urine Bilirubin Negative (NEGATIVE) 04/23/17 15:50 Urine Urobilinogen 2.0 mg/dL (0.2-1.0) H 04/23/17 15:50 Ur Leukocyte Esterase Trace Ernie/uL (Negative) 04/23/17 15:50 Urine WBC (Auto) 6 /hpf (0-5) H 04/23/17 15:50 Urine RBC (Auto) 1 /hpf (0-3) 04/23/17 15:50 Ur Squamous Epith Cells 9 /hpf (0-5) H 04/23/17 15:50 Urine Bacteria Occ (<OCC) H 04/23/17 15:50 Urine HCG, Qual Positive (NEGATIVE) 04/23/17 15:50 Blood Type A POSITIVE 04/23/17 16:12 Antibody Screen Negative 04/23/17 16:12 Attending/Attestation - Attestation I have personally seen and examined this patient.: Yes I have fully participated in the care of the patient.: Yes I have reviewed all pertinent clinical information, including history, physical exam and plan: Yes
[2017-04-24 09:31] LABS: NEUTROPHIL 94 % (50-75); TOTAL CELLS COUNTED 100
--- NOTE | 2017-04-24 15:03 | OP ---
PROCEDURE DATE: 04/23/2017 PREOPERATIVE DIAGNOSIS: Left ectopic . POSTOPERATIVE DIAGNOSIS: Left tubal . SURGEON: Ivet Whitaker MD SHAKE FEEDER: Salome Calle MD TYPE OF ANESTHESIA: General with endotracheal intubation. ANESTHESIOLOGIST: Edward Abad MD OPERATION PERFORMED: Retrieval of products of conception with cauterization of the fimbriated end of left fallopian tube. OPERATIVE FINDINGS: Examination under anesthesia: retroflexed uterus approximately 12 weeks in size with no adnexal masses appreciated. The uterus sounded to 10 cm. At laparoscopy: grossly normal appearing fallopian tube bilaterally. Expulsion site near the fimbriated end of the left fallopian tube oozing noted. Products of conception were retrieved from the posterior cul-de- sac. Normal ovaries bilaterally. Normal sized and normal appearing uterus; normal upper abdominal organs. There was possible hemorrhagic corpus luteum cyst of the left ovary and filmy adhesions in the right lower quadrant from the intestines to the anterior abdominal wall. SPECIMEN: Products of conception and blood clots. ESTIMATED BLOOD LOSS: 50 mL. IV FLUID: 1300 mL of Lactated Ringers. URINE OUTPUT: 200 mL. COMPLICATIONS: None. DESCRIPTION OF PROCEDURE: The patient was taken to the operating room after having obtained informed consent for the anticipated procedure. This included a discussion of possible risks, benefits and complications including, but not limited to repair of any damage to internal organs, infection requiring antibiotics, hemorrhage requiring blood transfusion, conversion of laparoscopy to an open laparotomy and removal of all diseased tissue. Patient's questions and concerns were answered and addressed. Consents were signed, dated, witnessed, and placed in the chart. The patient was then transferred to the operating room and placed on the operating table in supine position, where general anesthesia with endotracheal intubation was administered without incident. The patient was repositioned in the dorsal lithotomy position and her legs were placed in Fred stirrups. The vagina and perineum were prepped and the abdomen was also prepped. She was draped in the usual sterile fashion. A weighted-speculum was placed in the posterior vaginal vault. Using a Machado retractor, the cervix was visualized and it was grasped on the anterior lip with the single-toothed tenaculum. The uterus was sounded to 10 cm as above. A HUMI-uterine manipulator was inserted without incident. Attention was then directed to the patient's abdomen. A stab wound was made directly into the umbilical fold. The Veress needle was inserted and its placement was confirmed by the retrieval of no blood, no feces, and no urine. Pneumoperitoneum was created to 15 cm of water. The incision was extended to allow a 5-mm trocar. Upon entry, the introducer was removed and the camera was inserted confirming good placement. The uterus was visualized and the patient was placed in Trendelenburg position. The fallopian tubes appeared normal, so a secondary port was placed in the right lower quadrant with a 5-mm port under direct visualization. Using a blunt probe, visualization of the adnexa as described above; it was apparent there was spontaneous tubal of products of conception. Visualization of pelvic organs were otherwise normal as above. Irrigation was performed of the posterior cul-de-sac. At this point in time, there appeared to be tissue, which was a product of conception, this was grasped and placed in the cul-de-sac anteriorly. After additional irrigation, it was noted there was oozing from the fimbriated end on the left fallopian tube. An 8-mm port was created in the left lower quadrant to allow for introduction of the Endobag. The blood clot and retained products of conception were placed in the bag and removed under direct visualization. The decision was then made to cauterize to obtain hemostasis on the fimbriated end of the left fallopian tube. This was done using the monopolar cautery. Irrigation was again performed and hemostasis was assured. All instruments were removed under direct visualization. The laparoscopic ports were reapproximated using 4-0 Monocryl in subcuticular manner. Attention was directed to the vagina. Weighted-speculum was replaced and the HUMI manipulator was removed after decompressing the balloon. There was noted to be quite significant bleeding on the anterior lip of the cervix and hemostasis was assured using 2-0 Chromic in a running interlocking fashion. All instruments were subsequently removed. The patient was replaced in the supine position. She was extubated and transferred to PACU in stable condition. Dr. Salome Calle was present throughout the entire procedure from beginning to end. Her presence was necessary for: 1. Visualization of the operative field at all times. 2. Assuring adequate hemostasis at all times. 3. Ensuring retrieval of all products of conception. Ivet MD Sherman CRYSTAL
== END 2017-04-24 12:35 | disposition home or self-care (01) | DRG 777 ==
LOC: C.ER 15:21 → C.4M 20:22 → OBSVTOIN 20:22
PROVIDERS: ADMIT Obstetrics & Gynecology; ATTEND Obstetrics & Gynecology
PROC: 0W3R8ZZ Control Bleeding in Genitourinary Tract, Via Natural or Artificial Opening Endoscopic (ICD-10-PCS; 2017-04-23)
PROC: 0UC Female Reproductive System, Extirpation (ICD-10-PCS; principal; 2017-04-23 21:30)
DX: O00.102 Left tubal pregnancy without intrauterine pregnancy (principal); E11.9 Type 2 diabetes mellitus without complications; N83.12 Corpus luteum cyst of left ovary; J45.909 Unspecified asthma, uncomplicated; K66.0 Peritoneal adhesions (postprocedural) (postinfection); Z80.8 Family history of malignant neoplasm of other organs or systems; Z82.49 Family history of ischemic heart disease and other diseases of the circulatory system; Z83.3 Family history of diabetes mellitus; Z87.442 Personal history of urinary calculi; Z90.49 Acquired absence of other specified parts of digestive tract; Z3A.01 Less than 8 weeks gestation of pregnancy

== ENCOUNTER 2017-04-27 12:57 | Observation (INO) | payer MEDICAID, OTHER ==
[2017-04-27 12:57] VITALS: BMI 31.6
--- NOTE | 2017-04-27 14:46 | C.PDOC ---
History Of Present Illness 26 y/o female status post laparoscopic salpingectomy 5 days ago for ectopic presents to ED with complaints of lower abdominal pain with associated dysuria and nausea for 3 days. Patient states she called PMD who advised she come to ED for further evaluation. Patient denies fever, chills, back pain, vaginal bleeding or discharge. No other complaints at this time. Time Seen by Provider: 04/27/17 14:46 Chief Complaint (Nursing): Abdominal Pain History Per: Patient History/Exam Limitations: no limitations Onset/Duration Of Symptoms: Days Current Symptoms Are (Timing): Still Present Location Of Pain/Discomfort: Suprapubic Quality Of Discomfort: "Pain" Past Medical History Reviewed: Historical Data, Nursing Documentation, Vital Signs Vital Signs: Last Vital Signs Temp 97.1 F L 04/27/17 20:20 Pulse 72 04/27/17 20:20 Resp 20 04/27/17 20:20 BP 118/74 04/27/17 20:20 Pulse Ox 100 04/27/17 20:20 - Medical History PMH: Asthma, Diabetes, Kidney Stones Surgical History: Appendectomy - [facility] Procedures CONTROL BLEEDING IN GENITOURINARY TRACT, ENDO (04/23/17) DELIVERY OF PRODUCTS OF CONCEPTION, EXTERNAL APPROACH (10/28/15) DRAINAGE OF AMNIOTIC FL, THERAP FROM POC, VIA OPENING (10/28/15) EXTIRPATION OF MATTER FROM LEFT FALLOPIAN TUBE, ENDO (04/23/17) Family History: States: No Known Family Hx - Social History Hx Tobacco Use: No Hx Alcohol Use: No Hx Substance Use: No - Immunization History Hx Tetanus Toxoid Vaccination: Yes Hx Influenza Vaccination: Yes Hx Pneumococcal Vaccination: No Review Of Systems Except As Marked, All Systems Reviewed And Found Negative. Constitutional: Negative for: Fever, Chills Gastrointestinal: Positive for: Nausea, Abdominal Pain Genitourinary: Positive for: Dysuria. Negative for: Hematuria, Vaginal Discharge, Vaginal Bleeding Musculoskeletal: Negative for: Back Pain Skin: Negative for: Rash Physical Exam - Physical Exam Appears: Non-toxic, No Acute Distress Skin: Warm, Dry, No Rash Head: Normacephalic Eye(s): bilateral: Normal Inspection Oral Mucosa: Moist Neck: Normal ROM, Supple Chest: Symmetrical Cardiovascular: Rhythm Regular Respiratory: Normal Breath Sounds, No Rales, No Rhonchi, No Wheezing Gastrointestinal/Abdominal: Tenderness (lower abdomen), No Guarding, No Rebound , Other (Dressing to bilateral lower quadrants and periumbilical area) Extremity: Normal ROM, No Pedal Edema Pulses: Left Dorsalis Pedis: Normal, Right Dorsalis Pedis: Normal Neurological/Psych: Oriented x3 ED Course And Treatment - Laboratory Results Result Diagrams: 04/27/17 15:07 04/27/17 15:07 O2 Sat by Pulse Oximetry: 100 (RA) Pulse Ox Interpretation: Normal - CT Scan/US abd/pelvis Other Rad Studies (CT/US): Read By Radiologist CT/US Interpretation: questionable air in bladder as well as free air poss due to prior laparoscopic procedure Medical Decision Making Medical Decision Making: Impression - Post op pain Differential Diagnosis- Inter abdomen infection, UTI, Hemorrhage vs Post-op pain.Also must consider bladder injury or ureteral injury from the surgery given significant hematuria Plan: Lab work, CT w/ contrast Pt seen by ob oncall senior market intelligence consultant.They will admit pt for observation Disposition Discussed With Dr.: Sandeep Richmond Doctor Will See Patient In The: Hospital - Disposition Disposition: HOSPITALIZED Disposition Time: 22:36 Condition: FAIR - Clinical Impression Clinical Impression: Postoperative generalized abdominal pain - Scribe Statement The provider has reviewed the documentation as recorded by the Scribe Primo Fisher All medical record entries made by the Scribe were at my direction and personally dictated by me. I have reviewed the chart and agree that the record accurately reflects my personal performance of the history, physical exam, medical decision making, and the department course for this patient. I have also personally directed, reviewed, and agree with the discharge instructions and disposition. Decision To Admit - Pt Status Changed To: Hospital Disposition Of: Observation - . Bed Request Type: Regular Admitting Physician: Sandeep Richmond Patient Diagnosis: Postoperative generalized abdominal pain
[2017-04-27] MEDS ORDERED: Morphine 4 MG/ML VIAL IV ONE (14:53)
[2017-04-27 15:14] LABS: BASO # 0.1 K/uL (0.0-0.2); BASO % 0.6 % (0.0-2.0); EOS # 0.3 K/uL (0.0-0.7); EOS % 2.7 % (0.0-4.0); HEMATOCRIT 36.9 % (34.0-47.0); LYMPH # 2.3 K/uL (1.0-4.3); MEAN CELL VOLUME 90.8 fL (81.0-99.0); MEAN CORPUSCULAR HEMOGLOBIN 30.6 pg (27.0-31.0); MEAN CORPUSCULAR HGB CONC 33.7 g/dL (33.0-37.0); MEAN PLATELET VOLUME 8.2 fL (7.2-11.7); MONO # 0.7 K/uL (0.0-0.8); MONO % 6.2 % (0.0-10.0); RED CELL DISTRIBUTION WIDTH 13.2 % (11.5-14.5); WHITE BLOOD COUNT 10.4 K/uL (4.8-10.8)
[2017-04-27 15:18] LABS: RBC URINE 755 /hpf (0-3); URINE BACTERIA RARE (<OCC); URINE BILIRUBIN NEGATIVE (NEGATIVE); URINE BLOOD 3+ (NEGATIVE); URINE COLOR Yellow (YELLOW); URINE GLUCOSE (UA) NORMAL (Normal); URINE KETONE NEGATIVE (NEGATIVE); URINE LEUKOCYTE ESTERASE NEG Leu/uL (Negative); URINE PROTEIN 1+ mg/dL (NEGATIVE); URINE UROBILINOGEN NORMAL mg/dL (0.2-1.0); WBC URINE 4 /hpf (0-5)
[2017-04-27 15:30] LABS: CHLORIDE 102 mmol/L (98-107); POTASSIUM 4.2 mmol/L (3.6-5.2); SODIUM 135 mmol/L (132-148)
[2017-04-27 15:32] LABS: BILIRUBIN,TOTAL 0.4 mg/dL (0.2-1.3); GFR AFRICAN-AMERICAN > 60
[2017-04-27 15:33] LABS: ALB/GLOB RATIO 1.1 (1.0-2.1); ALKALINE PHOSPHATASE 65 U/L (38-126); ALT/SGPT 30 U/L (9-52); AST/SGOT 22 U/L (14-36); BLOOD UREA NITROGEN 13 mg/dL (7-17); CALCIUM 9.5 mg/dl (8.6-10.4); CARBON DIOXIDE 24 mmol/L (22-30); GLUCOSE,RANDOM 80 mg/dL (65-105); TOTAL PROTEIN 8.3 g/dL (6.3-8.3)
[2017-04-27] MEDS ORDERED: Iodixanol 320 MG/ML 100 ML BOTTLE IV ONE (16:58)
--- NOTE | 2017-04-27 18:00 | CT ---
PROCEDURE: CT Abdomen and Pelvis with contrast HISTORY: abd pain, salpingectomy on 04/2019. COMPARISON: CT abdomen and pelvis without contrast performed 12/11/14 TECHNIQUE: Contrast dose: 100 mL Visipaque Radiation dose: Total exam DLP = 805.71 mGy-cm. This CT exam was performed using one or more of the following dose reduction techniques: Automated exposure control, adjustment of the mA and/or kV according to patient size, and/or use of iterative reconstruction technique. FINDINGS: LOWER THORAX: 5 mm calcified granuloma, left lower lobe. No visible pleural effusion or pneumothorax. LIVER: Unremarkable. GALLBLADDER AND BILE DUCTS: Unremarkable. PANCREAS: Unremarkable. SPLEEN: Unremarkable. ADRENALS: Unremarkable. KIDNEYS AND URETERS: The kidneys enhance symmetrically. No hydronephrosis or obstructing calculus identified. Punctate nonobstructing right lower pole calculus. VASCULATURE: No aortic aneurysm. BOWEL: Stomach is nondistended. Lack of oral contrast limits evaluation for bowel pathology. Bowel loops appear within normal limits of caliber without evidence of obstruction. Moderate constipation. APPENDIX: The appendix appears within normal limits of caliber. No secondary signs of acute appendicitis. PERITONEUM: Small pelvic free fluid. Small pneumoperitoneum. LYMPH NODES: No bulky adenopathy identified. BLADDER: Small air within the urinary bladder, possibly secondary to recent instrumentation. REPRODUCTIVE: The uterus is present and appears heterogeneous. BONES: No acute osseous abnormality is detected. OTHER FINDINGS: None. IMPRESSION: Pneumoperitoneum consistent with recent postsurgical status. Correlate clinically. Small pelvic free fluid. Small air within the urinary bladder may be secondary to recent instrumentation. Correlate clinically including urinalysis. Cystitis cannot be excluded. Moderate constipation. Nonobstructing right lower pole punctate renal calculus. Heterogeneous appearance of the uterus. 5 mm left lower lobe calcified granuloma.
--- NOTE | 2017-04-27 18:09 | CP.PCM.HP ---
History of Present Illness - History of Present Illness History of Present Illness: Patient is a 26 year old s/p Laparoscopic Left Tubal for ectopic on 04/23/17 presents to the ED after feeling increasingly bloated and lower abdominal pain. Pain is intermittent. Patient rates the pain 7 /10. Took ibuprofen at home with minimal relief. States that Percocet makes her nauseous, hence why she did not take the medication. Patient also having vaginal bleeding, states that bleeding is heavier than her normal period. Currently having dysuria. Denies fevers, chills, headaches, dizziness, cp, palpitations, sob, changes in bowel habits. 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 Family Hx: Mother alive 45 y.o. - cancer of the brain. Father age 42 - complications of HTN, DM, cardiac issues. NO other fam h/o cancer Present on Admission - Present on Admission Any Indicators Present on Admission: No Review of Systems - Review of Systems All systems: reviewed and no additional remarkable complaints except - Constitutional Constitutional: absent: Chills, Fever, Headache - EENT Eyes: absent: Blurred Vision, Change in Vision Ears: absent: Dizziness - Cardiovascular Cardiovascular: absent: Chest Pain, Dyspnea, Lightheadedness, Palpitations - Respiratory Respiratory: absent: Cough, Dyspnea, Wheezing - Gastrointestinal Gastrointestinal: Abdominal Pain, Belching, Nausea. absent: Constipation, Cramping, Diarrhea, Vomiting - Genitourinary Genitourinary: Dysuria. absent: Urinary Frequency - Musculoskeletal Musculoskeletal: absent: Back Pain, Numbness, Tingling - Neurological Neurological: absent: Dizziness, Numbness, Headaches, Weakness Past Patient History - Infectious Disease Hx of Infectious Diseases: None - Tetanus Immunizations Tetanus Immunization: Unknown - Past Social History Smoking Status: Never Smoked - CARDIAC Hx Cardiac Disorders: No - PULMONARY Hx Asthma: Yes - NEUROLOGICAL Hx Neurological Disorder: No - RENAL Hx Kidney Stones: Yes - HEMATOLOGICAL/ONCOLOGICAL Hx Blood Disorders: No - INTEGUMENTARY Hx Dermatological Problems: No - MUSCULOSKELETAL/RHEUMATOLOGICAL Hx Back Pain: Yes - GASTROINTESTINAL Other/Comment: Appendectomy, age 11 - PSYCHIATRIC Hx Substance Use: No - SURGICAL HISTORY Hx Appendectomy: Yes - ANESTHESIA Hx Anesthesia: Yes Meds Allergies/Adverse Reactions: Allergies Allergy/AdvReac Type Severity Reaction Status Date / Time No Known Allergies Allergy Verified 04/27/17 13:32 Physical Exam - Constitutional Appears: Non-toxic, No Acute Distress - Head Exam Head Exam: ATRAUMATIC, NORMAL INSPECTION - Eye Exam Eye Exam: EOMI, Normal appearance Pupil Exam: NORMAL ACCOMODATION - ENT Exam ENT Exam: Mucous Membranes Moist - Neck Exam Neck exam: Positive for: Full Rom - Respiratory Exam Respiratory Exam: Clear to Auscultation Bilateral, NORMAL BREATHING PATTERN. absent: Rales, Rhonchi, Wheezes - Cardiovascular Exam Cardiovascular Exam: REGULAR RHYTHM, +S1, +S2 - GI/Abdominal Exam GI & Abdominal Exam: Normal Bowel Sounds, Soft, Tenderness. absent: Guarding, Rebound, Rigid Additional comments: Incisions c/d/i with steristrips - Exam Speculum exam: Vaginal Bleeding Bimanual exam: Cervical Motion Tendernes. absent: Adenexal Mass Additional comments: SSE: 10cc of blood in vaginal vault - Extremities Exam Extremities exam: Positive for: normal inspection. Negative for: calf tenderness - Neurological Exam Neurological exam: Alert, Oriented x3 - Psychiatric Exam Psychiatric exam: Normal Affect, Normal Mood - Skin Skin Exam: Dry, Normal Color, Warm Results - Vital Signs Recent Vital Signs: Last Vital Signs Temp 98.1 F 04/27/17 13:27 Pulse 85 04/27/17 13:27 Resp 20 04/27/17 13:27 BP 120/79 04/27/17 13:27 Pulse Ox 100 04/27/17 17:10 - Labs Result Diagrams: 04/27/17 15:07 04/27/17 15:07 Labs: Laboratory Results - last 24 hr 04/27/17 04/27/17 04/27/17 15:07 15:07 15:07 WBC 10.4 RBC 4.06 Hgb 12.4 Hct 36.9 MCV 90.8 MCH 30.6 MCHC 33.7 RDW 13.2 Plt Count 379 MPV 8.2 Neut % (Auto) 68.5 Lymph % (Auto) 22.0 [place] % (Auto) 6.2 Eos % (Auto) 2.7 Baso % (Auto) 0.6 Neut # 7.1 H Lymph # 2.3 [place] # 0.7 Eos # 0.3 Baso # 0.1 PT 11.6 INR 1.0 APTT 34 Sodium Potassium Chloride Carbon Dioxide Anion Gap BUN Creatinine Est GFR ( Amer) Est GFR (Non-Af Amer) Random Glucose Calcium Total Bilirubin AST ALT Alkaline Phosphatase Total Protein Albumin Globulin Albumin/Globulin Ratio Lipase Urine Color Yellow Urine Clarity Hazy Urine pH 6.0 Ur Specific [place] 1.021 Urine Protein 1+ H Urine Glucose (UA) Normal Urine Ketones Negative Urine Blood 3+ H Urine Nitrate Negative Urine Bilirubin Negative Urine Urobilinogen Normal Ur Leukocyte Esterase Neg Urine WBC (Auto) 4 Urine RBC (Auto) 755 H Ur Squamous Epith Cells 2 Urine Bacteria Rare 04/27/17 15:07 WBC RBC Hgb Hct MCV MCH MCHC RDW Plt Count MPV Neut % (Auto) Lymph % (Auto) [place] % (Auto) Eos % (Auto) Baso % (Auto) Neut # Lymph # [place] # Eos # Baso # PT INR APTT Sodium 135 Potassium 4.2 Chloride 102 Carbon Dioxide 24 Anion Gap 14 BUN 13 Creatinine 0.6 L Est GFR ( Amer) > 60 Est GFR (Non-Af Amer) > 60 Random Glucose 80 Calcium 9.5 Total Bilirubin 0.4 AST 22 ALT 30 Alkaline Phosphatase 65 Total Protein 8.3 Albumin 4.3 Globulin 4.0 H Albumin/Globulin Ratio 1.1 Lipase 82 Urine Color Urine Clarity Urine pH Ur Specific [place] Urine Protein Urine Glucose (UA) Urine Ketones Urine Blood Urine Nitrate Urine Bilirubin Urine Urobilinogen Ur Leukocyte Esterase Urine WBC (Auto) Urine RBC (Auto) Ur Squamous Epith Cells Urine Bacteria Assessment & Plan - Assessment and Plan (Free Text) Assessment: 26 year old s/p Laparoscopic Left tubal POD#4 presents with lower abdominal pain with nausea and dysuria Plan: 1. Stable, afebrile, no leukocytosis 2. Will admit for observation 3. Hgb stable, Rh positive 4. F/U CT abd report 5. Pain control - Toradol 30mg IV Q6H prn 6. Zofran prn nausea 7. Abx: Keflex 500mg Q12H 8. Beta hcg 2097.0 on 04/24, F/U beta hcg, am labs 9. Plan d/w attending
[2017-04-27] MEDS: Lactated Ringer's 1,000 ML IV SCH (20:06)
[2017-04-28] MEDS: Lactated Ringer's 1,000 ML IV SCH (05:48)
--- NOTE | 2017-04-28 07:37 | CP.PCM.PN ---
Subjective - Date & Time of Evaluation Date of Evaluation: 04/28/17 Time of Evaluation: 07:35 - Subjective Subjective: Patient seen and examined at bedside. Patient is doing well, pain is controlled. Patient is ambulating and tolerating diet. Denies headaches, dizziness, cp, palpitations, sob. Passing flatus but has not had a BM since Thursday. Objective - Vital Signs/Intake and Output Vital Signs (last 24 hours): Temp Pulse Resp BP Pulse Ox 98.2 F 85 20 122/76 98 04/28/17 00:17 04/28/17 00:17 04/28/17 00:17 04/28/17 00:17 04/28/17 00:17 - Medications Medications: Current Medications Cephalexin Monohydrate (Keflex) 500 mg PO Q12H [facility] Last Admin: 04/28/17 06:58 Dose: 500 mg Docusate Sodium (Colace) 100 mg PO BID [facility] Last Admin: 04/27/17 19:40 Dose: 100 mg Lactated Ringer's (Lactated Ringer's) 1,000 mls @ 100 mls/hr IV .Q10H [facility] Last Admin: 04/28/17 05:48 Dose: 100 mls/hr Ketorolac Tromethamine (Toradol) 30 mg IVP Q6H PRN PRN Reason: Pain, moderate (4-7) Last Admin: 04/28/17 05:45 Dose: 30 mg Ondansetron HCl (Zofran Inj) 4 mg IVP Q6H PRN PRN Reason: Nausea/Vomiting Last Admin: 04/27/17 19:40 Dose: 4 mg Sennosides (Senokot Tab) 8.6 mg PO BID [facility] Last Admin: 04/27/17 19:55 Dose: 8.6 mg - Labs Labs: 04/27/17 15:07 04/27/17 15:07 PT 11.6 SECONDS (9.7-12.2) 04/27/17 15:07 INR 1.0 04/27/17 15:07 APTT 34 SECONDS (21-34) 04/27/17 15:07 - Constitutional Appears: Non-toxic, No Acute Distress - Head Exam Head Exam: ATRAUMATIC, NORMAL INSPECTION - Eye Exam Eye Exam: EOMI, Normal appearance Pupil Exam: NORMAL ACCOMODATION - ENT Exam ENT Exam: Mucous Membranes Moist - Neck Exam Neck Exam: Full ROM - Respiratory Exam Respiratory Exam: Clear to Ausculation Bilateral, NORMAL BREATHING PATTERN. absent: Rales, Rhonchi, Wheezes - Cardiovascular Exam Cardiovascular Exam: REGULAR RHYTHM, +S1, +S2 - GI/Abdominal Exam GI & Abdominal Exam: Soft, Tenderness, Normal Bowel Sounds. absent: Distended, Firm, Guarding, Rigid, Rebound - Rectal Exam Rectal Exam: Deferred - Extremities Exam Extremities Exam: Normal Inspection - Back Exam Back Exam: NORMAL INSPECTION - Neurological Exam Neurological Exam: Alert, Awake, Normal Gait, Oriented x3 - Psychiatric Exam Psychiatric exam: Normal Affect, Normal Mood - Skin Skin Exam: Dry, Normal Color, Warm Assessment and Plan - Assessment and Plan (Free Text) Assessment: 26 year old s/p Laparoscopic Left tubal POD#5 presented with lower abdominal pain with nausea and dysuria Plan: 1. Stable, afebrile, no leukocytosis 2. Hgb stable, Rh positive 3. CT abd/pelvis reviewed 4. Beta Hcg decreasing appropriately, 141.3 5. Patient clear for discharge home 6. Pelvic rest x 6 weeks, percocet and motrin prn pain, zofran prn nausea, f/u with [facility] in 1 week 7. Plan d/w attending
[2017-04-28 07:55] VITALS: BP 117/76; PULSE 80; RESP 18; TEMP 98.8; O2SAT 100
[2017-04-28 08:15] LABS: BASO % 0.4 % (0.0-2.0); EOS # 0.3 K/uL (0.0-0.7); EOS % 3.7 % (0.0-4.0); HEMATOCRIT 35.4 % (34.0-47.0); LYMPH # 2.2 K/uL (1.0-4.3); LYMPH % 25.6 % (20.0-40.0); MEAN CORPUSCULAR HEMOGLOBIN 30.6 pg (27.0-31.0); MEAN CORPUSCULAR HGB CONC 33.6 g/dL (33.0-37.0); MEAN PLATELET VOLUME 8.6 fL (7.2-11.7); MONO # 0.7 K/uL (0.0-0.8); MONO % 8.1 % (0.0-10.0); RED CELL DISTRIBUTION WIDTH 13.3 % (11.5-14.5); WHITE BLOOD COUNT 8.6 K/uL (4.8-10.8)
[2017-04-28 08:23] LABS: CHLORIDE 102 mmol/L (98-107)
[2017-04-28 08:24] LABS: POTASSIUM 4.1 mmol/L (3.6-5.2); SODIUM 134 mmol/L (132-148)
[2017-04-28 08:26] LABS: ALB/GLOB RATIO 1.1 (1.0-2.1); ALKALINE PHOSPHATASE 55 U/L (38-126); AST/SGOT 17 U/L (14-36); BILIRUBIN,TOTAL 0.3 mg/dL (0.2-1.3); BLOOD UREA NITROGEN 10 mg/dL (7-17); CARBON DIOXIDE 24 mmol/L (22-30); GFR AFRICAN-AMERICAN > 60; GLUCOSE,RANDOM 77 mg/dL (65-105)
[2017-04-28 08:27] LABS: ALT/SGPT 21 U/L (9-52); CALCIUM 8.7 mg/dl (8.6-10.4)
[2017-04-28] MEDS ORDERED: POLYETHYLENE GLYCOL 3350 17 GM/Dose PACKET PO ONE (09:30)
--- NOTE | 2017-04-28 14:58 | CP.PCM.DIS ---
Provider - Provider Date of Admission: 04/27/17 18:17 Attending physician: Sandeep Richmond MD Time Spent in preparation of Discharge (in minutes): 31 Hospital Course - Lab Results Lab Results: Most Recent Lab Values WBC 8.6 K/uL (4.8-10.8) 04/28/17 07:37 RBC 3.89 Mil/uL (3.80-5.20) 04/28/17 07:37 Hgb 11.9 g/dL (11.0-16.0) 04/28/17 07:37 Hct 35.4 % (34.0-47.0) 04/28/17 07:37 MCV 91.0 fL (81.0-99.0) 04/28/17 07:37 MCH 30.6 pg (27.0-31.0) 04/28/17 07:37 MCHC 33.6 g/dL (33.0-37.0) 04/28/17 07:37 RDW 13.3 % (11.5-14.5) 04/28/17 07:37 Plt Count 365 K/uL (130-400) 04/28/17 07:37 MPV 8.6 fL (7.2-11.7) 04/28/17 07:37 Neut % (Auto) 62.2 % (50.0-75.0) 04/28/17 07:37 Lymph % (Auto) 25.6 % (20.0-40.0) 04/28/17 07:37 [place] % (Auto) 8.1 % (0.0-10.0) 04/28/17 07:37 Eos % (Auto) 3.7 % (0.0-4.0) 04/28/17 07:37 Baso % (Auto) 0.4 % (0.0-2.0) 04/28/17 07:37 Neut # 5.3 K/uL (1.8-7.0) 04/28/17 07:37 Lymph # 2.2 K/uL (1.0-4.3) 04/28/17 07:37 [place] # 0.7 K/uL (0.0-0.8) 04/28/17 07:37 Eos # 0.3 K/uL (0.0-0.7) 04/28/17 07:37 Baso # 0.0 K/uL (0.0-0.2) 04/28/17 07:37 PT 11.6 SECONDS (9.7-12.2) 04/27/17 15:07 INR 1.0 04/27/17 15:07 APTT 34 SECONDS (21-34) 04/27/17 15:07 Sodium 134 mmol/L (132-148) 04/28/17 07:37 Potassium 4.1 mmol/L (3.6-5.2) 04/28/17 07:37 Chloride 102 mmol/L (98-107) 04/28/17 07:37 Carbon Dioxide 24 mmol/L (22-30) 04/28/17 07:37 Anion Gap 13 (10-20) 04/28/17 07:37 BUN 10 mg/dL (7-17) 04/28/17 07:37 Creatinine 0.7 mg/dL (0.7-1.2) 04/28/17 07:37 Est GFR ( Amer) > 60 04/28/17 07:37 Est GFR (Non-Af Amer) > 60 04/28/17 07:37 Random Glucose 77 mg/dL (65-105) 04/28/17 07:37 Calcium 8.7 mg/dl (8.6-10.4) 04/28/17 07:37 Total Bilirubin 0.3 mg/dL (0.2-1.3) 04/28/17 07:37 AST 17 U/L (14-36) 04/28/17 07:37 ALT 21 U/L (9-52) 04/28/17 07:37 Alkaline Phosphatase 55 U/L (38-126) 04/28/17 07:37 Total Protein 7.0 g/dL (6.3-8.3) 04/28/17 07:37 Albumin 3.6 g/dL (3.5-5.0) 04/28/17 07:37 Globulin 3.3 gm/dL (2.2-3.9) 04/28/17 07:37 Albumin/Globulin Ratio 1.1 (1.0-2.1) 04/28/17 07:37 Lipase 82 U/L (23-300) 04/27/17 15:07 Beta HCG, Quant 141.31 mIU/ML 04/28/17 07:37 Urine Color Yellow (YELLOW) 04/27/17 15:07 Urine Clarity Hazy (Clear) 04/27/17 15:07 Urine pH 6.0 (5.0-8.0) 04/27/17 15:07 Ur Specific [place] 1.021 (1.003-1.030) 04/27/17 15:07 Urine Protein 1+ mg/dL (NEGATIVE) H 04/27/17 15:07 Urine Glucose (UA) Normal mg/dL (Normal) 04/27/17 15:07 Urine Ketones Negative mg/dL (NEGATIVE) 04/27/17 15:07 Urine Blood 3+ (NEGATIVE) H 04/27/17 15:07 Urine Nitrate Negative (NEGATIVE) 04/27/17 15:07 Urine Bilirubin Negative (NEGATIVE) 04/27/17 15:07 Urine Urobilinogen Normal mg/dL (0.2-1.0) 04/27/17 15:07 Ur Leukocyte Esterase Neg Ernie/uL (Negative) 04/27/17 15:07 Urine WBC (Auto) 4 /hpf (0-5) 04/27/17 15:07 Urine RBC (Auto) 755 /hpf (0-3) H 04/27/17 15:07 Ur Squamous Epith Cells 2 /hpf (0-5) 04/27/17 15:07 Urine Bacteria Rare (<OCC) 04/27/17 15:07 Discharge Exam - Head Exam Head Exam: ATRAUMATIC, NORMAL INSPECTION Discharge Plan - Discharge Medications Prescriptions: Ibuprofen [Motrin] 600 mg PO Q6H #20 tab Ondansetron [Zofran] 4 mg PO Q8H PRN #20 tab PRN Reason: Nausea/Vomiting oxyCODONE/Acetaminophen [Percocet 5/325 mg Tab] 1 ea PO Q6H PRN #10 tab PRN Reason: Pain, Moderate (4-7) - Follow Up Plan Condition: FAIR Disposition: HOME/ ROUTINE Instructions: Constipation (GEN), High Fiber Diet (GEN), Salpingectomy (DC) Additional Instructions: 1. Pain control prn, zofran prn nausea 2. Pelvic rest x 6 weeks 3. Please f/u with [facility]EL[facility] within 1 week 4. Return to ED if having fevers, severe abdominal pain, heavy vaginal bleeding 5. Recommending f/u with GI for constipation, may need outpatient colonoscopy
== END 2017-04-28 14:15 | disposition home or self-care (01) ==
LOC: C.ER 12:57 → C.9E 18:17 → C.4M 19:38
PROVIDERS: ADMIT Obstetrics & Gynecology; ATTEND Obstetrics & Gynecology
DX: G89.18 Other acute postprocedural pain (principal); R11.0 Nausea; R30.0 Dysuria
CPT/HCPCS: 36415; 74177; 80053; 81001; 83690; 84702; 85025; 85610; 85730; 96361; 96374; 96375; 96376; 99285; G0378; J1885; J2405; J7120; Q9967